=== PATIENT | female | born 1975 | race Caucasian/White ===

== ENCOUNTER 2016-11-16 12:03 | Emergency (ER) | payer OTHER ==
[2016-11-16 12:11] VITALS: PULSE 69
--- NOTE | 2016-11-16 12:57 | EDPHY ---
H & P Time Seen by Provider: 11/16/16 12:54 HPI/ROS: Chief complaint. Vaginal bleeding, dizzy HPI. 41-year-old female vaginal bleeding that began yesterday evening. Heavier than normal. With initially some small clots. She feels somewhat generally weak and maybe somewhat lightheaded on standing. This morning she was changing tampon every 30-60 minutes since 6:00 a.m. however the bleeding now seems to have tapered off. Slight low abdominal cramping in the suprapubic area. Denies urinary symptoms. This is her 2nd menstrual. After having a baby 8 months ago. Her 1st menstrual. Was 1 month ago and was quite light. It was the 1st menstrual. 7 months. This is the 2nd episode of vaginal bleeding. She had a negative test 3 days ago at home. She is breast feeding. ROS Constitutional. Slightly weak Eyes. no problems with vision ENT. no sore throat, no nasal drainage Cardiovascular. no chest pain Respiratory. no shortness of breath, no cough Abdominal. Mild low abdominal cramping and vaginal bleeding . no problems urinating MS. no calf pain/swelling, no neck/back pain, no joint pain Skin. no rash Lymph. no swollen glands Neuro. Lightheaded on standing Past Medical/Surgical History: Appendectomy Social History: , daily smoker, no alcohol Smoking Status: Current some day smoker Physical Exam: General Appearance: Alert pleasant well-developed female mild distress vitals are stable Eyes: Pupils equal and round no pallor or injection. ENT, Mouth: Mucous membranes are moist. Respiratory: There are no retractions, lungs are clear to auscultation. Cardiovascular: Regular rate and rhythm. Gastrointestinal: Abdomen is soft and nontender, no masses, bowel sounds normal. Neurological: Awake and alert, sensory and motor exams grossly normal. Skin: Warm and dry, no rashes. Musculoskeletal: Neck is supple nontender. Extremities symmetrical, full range of motion. Psychiatric: Patient is oriented X 3, there is no agitation. Constitutional: Initial Vital Signs Temperature (C) 36.6 C 11/16/16 12:07 Heart Rate 69 11/16/16 12:07 Respiratory Rate 20 11/16/16 12:07 Blood Pressure 128/75 H 11/16/16 12:07 O2 Sat (%) 94 11/16/16 12:07 O2 Delivery Mode Room Air Allergies/Adverse Reactions: No Known Allergies Allergy (Verified 11/16/16 12:06) Home Medications: Medication Instructions Recorded Norethindrone Acetate [Aygestin] 5 mg PO BID #10 tab 11/16/16 Medical Decision Making - Diagnostics Imaging Results: Imaging Impressions Pelvic/Renal Ultrasound 11/16/16 13:06 Impression: Endometrial stripe is not thickened at 7 mm, but there appears to be endometrial calcifications, which are nonspecific. Differential consideration could be chronic hemorrhage, chronic retained products of conception, or calcified polyp. Results called and discussed with Dr. Juancarlos Brewer, on November 16, 2016, at 1440 hours. Ultrasound of the pelvis reviewed by me and discussed with Dr. Moss shows 7 mm endometrial stripe with echogenic calcification. Consistent with old hemorrhage or retained products Procedures: IV normal saline ED Course/Re-evaluation: Re-evaluation 2:50 p.m. patient is stable. She notes decreased vaginal bleeding. She and I discussed laboratory evaluation, ultrasound studies, treatment plan including criteria for return importance of follow-up further evaluation. She expresses understanding. She is comfortable going home I consulted and discussed the case with Dr. guevara, OBGYN,. She recommends starting the patient onAygestin 5 mg bid for 5 days. She would like to see the patient in the office Monday or Monday but there are Partners in the office and Monday should bleeding worsen. I again discussed this plan with the patient and she is agreeable to this Differential Diagnosis: Vaginal bleeding post childbirth. She has an abnormal ultrasound with echogenic calcifications that would be consistent with hemorrhage or possible old retained products. The endometrial stripe is only 7 mm and would not be consistent with cancer all this would be in the differential - Data Points Laboratory Results: Laboratory Results 11/16/16 13:27 11/16/16 13:27 11/16/16 11/16/16 11/16/16 13:27 13:27 13:27 WBC 8.48 10^3/uL 10^3/uL (3.80-9.50) RBC 4.72 10^6/uL 10^6/uL (4.18-5.33) Hgb 14.9 g/dL g/dL (12.6-16.3) Hct 43.2 % % (38.0-47.0) MCV 91.5 fL fL (81.5-99.8) MCH 31.6 pg pg (27.9-34.1) MCHC 34.5 g/dL g/dL (32.4-36.7) RDW 12.1 % % (11.5-15.2) Plt Count 257 10^3/uL 10^3/uL (150-400) MPV 10.4 fL fL (8.7-11.7) Neut % (Auto) 74.2 % % (39.3-74.2) Lymph % (Auto) 15.6 % % (15.0-45.0) [place] % (Auto) 7.5 % % (4.5-13.0) Eos % (Auto) 1.8 % % (0.6-7.6) Baso % (Auto) 0.7 % % (0.3-1.7) Nucleat RBC Rel Count 0.0 % % (0.0-0.2) Absolute Neuts (auto) 6.29 10^3/uL 10^3/uL (1.70-6.50) Absolute Lymphs (auto) 1.32 10^3/uL 10^3/uL (1.00-3.00) Absolute Monos (auto) 0.64 10^3/uL 10^3/uL (0.30-0.80) Absolute Eos (auto) 0.15 10^3/uL 10^3/uL (0.03-0.40) Absolute Basos (auto) 0.06 10^3/uL 10^3/uL (0.02-0.10) Absolute Nucleated RBC 0.00 10^3/uL 10^3/uL (0-0.01) Immature Gran % 0.2 % % (0.0-1.1) Immature Gran # 0.02 10^3/uL 10^3/uL (0.00-0.10) Sodium 142 mEq/L mEq/L (134-144) Potassium 4.0 mEq/L mEq/L (3.5-5.2) Chloride 107 mEq/L mEq/L (97-110) Carbon Dioxide 24 mEq/l mEq/l (22-31) Anion Gap 11 mEq/L mEq/L (8-16) BUN 23 mg/dL mg/dL (7-23) Creatinine 0.8 mg/dL mg/dL (0.6-1.0) Estimated GFR > 60 Glucose 88 mg/dL mg/dL (70-100) Calcium 9.9 mg/dL mg/dL (8.5-10.4) Beta HCG, Qual NEGATIVE Medications Given: Discontinued Medications Sodium Chloride (Ns) 1,000 mls @ 0 mls/hr IV ONCE ONE PRN Reason: Wide Open Stop: 11/16/16 13:07 Last Admin: 11/16/16 13:25 Dose: 1,000 mls Departure - Departure Disposition: Home, Routine, Self-Care Clinical Impression: Vaginal bleeding Condition: Good Instructions: Dysfunctional Uterine Bleeding (ED) Additional Instructions: Use the medication recommended by Dr. guevara--Aygestin twice daily for 5 days to help control bleeding. Return for worsening bleeding soaking 1 pad or tampon per hour for more than 4 hours or for worsening lightheadedness or passing out. Call the office to arrange further evaluation by Dr. guevara. They can also see you in the office tomorrow or Monday. Referrals: Niharika Desir MD [Primary Care Provider] - As per Instructions Reshma Echevarria MD [Medical Doctor] - 2-3 days, call for appt. Prescriptions: Norethindrone Acetate [Aygestin] 5 mg PO BID #10 tab
[2016-11-16] MEDS ORDERED: NS 1,000 ML IV ONE (13:06)
[2016-11-16 13:37] LABS: % IMMATURE GRANULYOCYTES 0.2 % (0.0-1.1); ABSOLUTE IMMATURE GRANULOCYTES 0.02 10^3/uL (0.00-0.10); ADD DIFF? NO; ADD MORPH? NO; ADD SCAN? NO; ATYPICAL LYMPHOCYTE FLAG 30 (0-99); FRAGMENT RBC FLAG 0 (0-99); HEMATOCRIT 43.2 % (38.0-47.0); HEMOGLOBIN 14.9 g/dL (12.6-16.3); LEFT SHIFT FLG 0 (0-99); LIPEMIA HEMOLYSIS FLAG 90 (0-99); MEAN CELL HEMOGLOBIN 31.6 pg (27.9-34.1); MEAN CELL HEMOGLOBIN CONCENTR. 34.5 g/dL (32.4-36.7); MEAN CELL VOLUME 91.5 fL (81.5-99.8); MEAN PLATELET VOLUME 10.4 fL (8.7-11.7); PLATELET CLUMPS FLAG 0 (0-99); PLATELET COUNT 257 10^3/uL (150-400); RED BLOOD CELL COUNT 4.72 10^6/uL (4.18-5.33); RED CELL DISTRIBUTION WIDTH 12.1 % (11.5-15.2)
[2016-11-16 13:49] LABS: ANION GAP 11 mEq/L (8-16); CALCIUM 9.9 mg/dL (8.5-10.4); CARBON DIOXIDE 24 mEq/l (22-31); CHLORIDE 107 mEq/L (97-110); CREATININE 0.8 mg/dL (0.6-1.0); GLOMERULAR FILTRATION RATE > 60; GLUCOSE 88 mg/dL (70-100); SODIUM 142 mEq/L (134-144)
[2016-11-16 14:22] VITALS: BP 142/60; RESP 14; TEMP 99; O2SAT 95
== END 2016-11-16 15:30 | disposition home or self-care (01) ==
DX: N93.9 Abnormal uterine and vaginal bleeding, unspecified (principal); F17.200 Nicotine dependence, unspecified, uncomplicated